=== PATIENT | female | born 1965 | race Caucasian/White ===

== ENCOUNTER 2020-12-13 13:13 | Emergency (ER) | payer MEDICAID ==
[~2020-12-13] VITALS: Ht 157.5 cm; Wt 36.4 kg
[2020-12-13 13:18] VITALS: TEMP 98.3
[2020-12-13] MEDS ORDERED: NORCO 325 MG-51 TAB PO ×2 (13:48→14:17)
[2020-12-13] MEDS ORDERED: MEDROL 4MG DOSPA4 MG PO ×2 (13:48→14:18)
[2020-12-13 14:40] VITALS: BP 114/71; PULSE 72
--- NOTE | 2020-12-13 16:17 | NUR ---
JAZMIN recieved consult for patient without insurance for medications. Patient was given Voucher and JAZMIN facilitated with [facility] for medications for patient to obtian. AZAEL.
== END 2020-12-13 15:17 | disposition home or self-care (01) ==
LOC: COL.ER 13:13
DX: G89.29 Other chronic pain (principal); M54.5 Low back pain; R53.83 Other fatigue; J44.9 Chronic obstructive pulmonary disease, unspecified

== ENCOUNTER 2020-12-17 11:23 | Emergency (ER) | payer MEDICAID ==
[~2020-12-17] VITALS: Ht 157.5 cm; Wt 37.3 kg
[~2020-12-17 11:23] MED LIST: MEDROL 4MG DOSPA4 MG PO; NORCO 325 MG-51 TAB PO
[2020-12-17 11:27] VITALS: TEMP 97.6
[2020-12-17] MEDS ORDERED: NORCO 325 MG-51 TAB PO (12:19)
[2020-12-17] MEDS ORDERED: FLEXERIL 1010 MG/TAB PO (12:20)
--- NOTE | 2020-12-17 12:41 | NUR ---
SW called by ED nurse to assist with patient needing medications. SW spoke with patient and patient stated that her insurance does not kick in until January and needs medications until then. SW assisted with medications to [facility]. SW had conversation with patient in regards to medication voucher being provided this time to assist with meds. Nothing further.
[2020-12-17 12:45] VITALS: BP 142/71; PULSE 93
== END 2020-12-17 12:45 | disposition other institution (70) ==
LOC: COL.ER 11:23
DX: G89.29 Other chronic pain (principal); M54.5 Low back pain; J44.9 Chronic obstructive pulmonary disease, unspecified